=== PATIENT | female | born 1940 | race Caucasian/White ===

== ENCOUNTER 2024-05-07 06:05 | Day surgery (SDC) | payer MEDICARE, BC ==
[~2024-05-07 06:05] MED LIST: DEXAMETHASONE SOD PHOSPHATE 10 MG INJ ONE; IOHEXOL-240 MG , 50 ML VIAL IV ONE; LIDOCAINE HCL 1% 20 ML VIAL ONE; LIDOCAINE HCL-MPF 1% 5 ML VIAL ONE; SODIUM BICARBONATE 4.2 % (NEUT) 5 ML VIAL ONE; TRIAMCINOLONE ACETONIDE 40 MG/1 ML VIAL ONE
[2024-05-07] MEDS ORDERED: IOHEXOL 300 MG/ML 10 ML VIAL ONE (06:55)
[2024-05-07 07:09] LABS: BASOPHILS # (AUTO) 0.1 K/UL (0.0-0.2); BASOPHILS % (AUTO) 0.9 % (0.0-2.0); EOSINOPHILS # (AUTO) 0.5 K/uL (0.0-0.7); EOSINOPHILS % (AUTO) 7.2 % (0.0-7.0); HEMATOCRIT 39.9 % (31.2-41.9); HEMOGLOBIN 13.5 g/dL (10.9-14.3); LYMPHOCYTES # (AUTO) 1.2 K/uL (0.8-4.8); LYMPHOCYTES % (AUTO) 16.6 % (20.5-51.5); MEAN CORPUSCULAR HEMOGLOBIN 31.2 uug (24.7-32.8); MEAN CORPUSCULAR HGB CONC 34 g/dL (32.3-35.6); MEAN CORPUSCULAR VOLUME 92.2 fL (75.5-95.3); MONOCYTES # (AUTO) 1.1 K/uL (0.1-1.30); NEUTROPHILS # (AUTO) 4.2 K/uL (1.8-8.9); NEUTROPHILS % (AUTO) 59.3 % (38.5-71.5); PLATELET COUNT (AUTO) 199 K/uL (179-408); RED BLOOD CELL COUNT(AUTO) 4.33 MIL/uL (3.63-4.92); RED CELL DISTRIBUTION WIDTH 14.2 % (12.3-17.7); WHITE BLOOD COUNT (AUTO) 7.2 K/uL (3.8-11.8)
[2024-05-07 07:10] LABS: CALCIUM 9.5 mg/dL (8.5-10.1); CARBON DIOXIDE 30 mmol/L (21-32); CHLORIDE 107 mmol/L (98-107); CREATININE 0.8 mg/dL (0.6-1.3); GLUCOSE 117 mg/dL (74-106); POTASSIUM 4.5 mmol/L (3.5-5.1); SODIUM SERUM 143 mmol/L (136-145); UREA NITROGEN, BLOOD 15 mg/dL (7-18)
[2024-05-07 07:11] LABS: DIFFERENTIAL COMMENT 1
[2024-05-07] MEDS ORDERED: LIDOCAINE HCL-MPF 1% 5 ML VIAL ONE (07:13)
[2024-05-07] MEDS ORDERED: DEXAMETHASONE SOD PHOSPHATE 10 MG INJ ONE (07:14)
[2024-05-07] MEDS ORDERED: LIDOCAINE HCL 1% 20 ML VIAL ONE (07:14)
[2024-05-07] MEDS ORDERED: SODIUM BICARBONATE 4.2 % (NEUT) 5 ML VIAL ONE (07:14)
[2024-05-07] MEDS ORDERED: PROPOFOL 200 MG/20 ML BOTTLE ONE (07:30)
[2024-05-07 10:20] VITALS: TEMP 97.6
[2024-05-07 20:43] LABS: ANISOCYTOSIS 1+; EOSINOPHILS % (MANUAL) 5 % (0-8); LYMPHOCYTES % (MANUAL) 17 % (20-40); MONOCYTES % (MANUAL) 16 % (2-10); NEUTROPHILS % (MANUAL) 62 % (42-75); PLATELET ESTIMATE ADEQUATE
== END 2024-05-07 10:20 | disposition home or self-care (01) ==
LOC: DS 06:05
PROVIDERS: ATTEND Physical Medicine & Rehabilitation
DX: M54.17 Radiculopathy, lumbosacral region (principal); M54.16 Radiculopathy, lumbar region; I10 Essential (primary) hypertension; J45.909 Unspecified asthma, uncomplicated; E78.5 Hyperlipidemia, unspecified; F41.9 Anxiety disorder, unspecified; Z90.710 Acquired absence of both cervix and uterus; Z98.890 Other specified postprocedural states; Z79.01 Long term (current) use of anticoagulants; Z79.899 Other long term (current) drug therapy
CPT/HCPCS: 36415; 62323; 71045; 72100; 80048; 85007; 85025; 85730; J0690; J1100; J3490; J7120; Q9967; 70030-TC; A4663; J3301; Q9966

== ENCOUNTER 2024-12-01 06:45 | Day surgery (SDC) | payer MEDICARE, BC ==
[2024-12-01] MEDS ORDERED: DEXAMETHASONE SOD PHOSPHATE 10 MG INJ ONE (07:28)
[2024-12-01] MEDS ORDERED: LIDOCAINE HCL 1% 20 ML VIAL ONE (07:28)
[2024-12-01] MEDS ORDERED: SODIUM BICARBONATE 4.2 % (NEUT) 5 ML VIAL ONE (07:29)
[2024-12-01] MEDS ORDERED: LIDOCAINE HCL-MPF 1% 5 ML VIAL ONE (07:31)
[2024-12-01 09:56] VITALS: TEMP 98
== END 2024-12-01 10:15 | disposition home or self-care (01) ==
LOC: DS 06:45
PROVIDERS: ATTEND Physical Medicine & Rehabilitation
DX: M48.061 Spinal stenosis, lumbar region without neurogenic claudication (principal); M54.16 Radiculopathy, lumbar region; I10 Essential (primary) hypertension; J44.9 Chronic obstructive pulmonary disease, unspecified; M81.0 Age-related osteoporosis without current pathological fracture; M19.90 Unspecified osteoarthritis, unspecified site; E78.5 Hyperlipidemia, unspecified; Z90.710 Acquired absence of both cervix and uterus; Z98.890 Other specified postprocedural states; Z79.899 Other long term (current) drug therapy
CPT/HCPCS: 36415; 64483; 72100; 85730; J1100; J3490; J7120; A4663

== ENCOUNTER 2025-04-29 06:37 | Day surgery (SDC) | payer MEDICARE, BC ==
[2025-04-29] MEDS ORDERED: LIDOCAINE HCL-MPF 1% 5 ML VIAL ONE (08:01)
[2025-04-29] MEDS ORDERED: DEXAMETHASONE SOD PHOSPHATE 10 MG INJ ONE (08:01)
[2025-04-29] MEDS ORDERED: IOHEXOL-240 MG , 50 ML VIAL IV ONE (08:02)
[2025-04-29] MEDS ORDERED: LIDOCAINE HCL 1% 20 ML VIAL ONE (08:02)
[2025-04-29] MEDS ORDERED: SODIUM BICARBONATE 4.2 % (NEUT) 5 ML VIAL ONE (08:02)
[2025-04-29] MEDS ORDERED: LIDOCAINE-MPF 2% , 2 ML VIAL ONE (08:23)
[2025-04-29] MEDS ORDERED: PROPOFOL 200 MG/20 ML BOTTLE ONE (08:23)
[2025-04-29 10:30] VITALS: BP 162/73; TEMP 97.5
== END 2025-04-29 10:50 | disposition home or self-care (01) ==
LOC: DS 06:37
PROVIDERS: ATTEND Physical Medicine & Rehabilitation
DX: M54.16 Radiculopathy, lumbar region (principal); J44.9 Chronic obstructive pulmonary disease, unspecified; I10 Essential (primary) hypertension; M19.90 Unspecified osteoarthritis, unspecified site; F41.9 Anxiety disorder, unspecified; E78.5 Hyperlipidemia, unspecified; Z86.73 Personal history of transient ischemic attack (TIA), and cerebral infarction without residual deficits; Z79.899 Other long term (current) drug therapy; Z98.890 Other specified postprocedural states; Z88.6 Allergy status to analgesic agent; Z91.041 Radiographic dye allergy status
CPT/HCPCS: 64483; 72100; J1100; J3490 ×4; J7120; A4663; Q9966

== ENCOUNTER 2025-08-18 06:34 | Day surgery (SDC) | payer MEDICARE, BC ==
[2025-08-18] MEDS ORDERED: LIDOCAINE HCL-MPF 1% 5 ML VIAL ONE (07:06)
[2025-08-18] MEDS ORDERED: DEXAMETHASONE SOD PHOSPHATE 10 MG INJ ONE (07:06)
[2025-08-18] MEDS ORDERED: IOHEXOL-240 MG , 50 ML VIAL IV ONE (07:06)
[2025-08-18] MEDS ORDERED: LIDOCAINE HCL 1% 20 ML VIAL ONE (07:06)
[2025-08-18] MEDS ORDERED: SODIUM BICARBONATE 4.2 % (NEUT) 5 ML VIAL ONE (07:07)
[2025-08-18] MEDS ORDERED: LABETALOL HCL 100 MG/20 ML VIAL ONE (08:22)
[2025-08-18] MEDS ORDERED: PROPOFOL 200 MG/20 ML BOTTLE ONE (08:41)
[2025-08-18] MEDS ORDERED: LIDOCAINE-MPF 2% 5 ML VIAL ONE (08:41)
[2025-08-18 10:50] VITALS: BP 128/59; TEMP 97.9
== END 2025-08-18 10:50 | disposition home or self-care (01) ==
LOC: DS 06:34
PROVIDERS: ATTEND Physical Medicine & Rehabilitation
DX: M54.16 Radiculopathy, lumbar region (principal); J44.89 Other specified chronic obstructive pulmonary disease; M19.90 Unspecified osteoarthritis, unspecified site; E78.5 Hyperlipidemia, unspecified; F41.9 Anxiety disorder, unspecified; Z79.899 Other long term (current) drug therapy; Z90.710 Acquired absence of both cervix and uterus; Z98.890 Other specified postprocedural states; Z88.6 Allergy status to analgesic agent; Z91.041 Radiographic dye allergy status
CPT/HCPCS: 64483; 71045; 72100; J1100; J3490; J7120; A4663; Q9966